=== PATIENT | female | born 1960 | race Caucasian/White ===

== ENCOUNTER → 2019-12-18 | Outpatient (CLI) | payer OTHER ==
[~2019-12-18] MED LIST: ATEN50TA41 PO; DIPH25CA61 PO; FEXO60TA24 PO; HYDR-3240 PO; HYDR25TA6 PO; HYDR50TA3 PO; LEVO112T41 PO; LEVO75TA59 PO; MELA3TAB56 PO; MULT-672 PO; OMEG-14 PO; POTA10CA PO; POTA10TA6 PO; PSYL0.5215 PO; VANC125C3 PO; hycosamine PO; marijuana
== END | disposition home or self-care (01) ==
LOC: RAD 09:11
PROVIDERS: ATTEND Family Medicine
DX: R10.9 Unspecified abdominal pain (principal)
CPT/HCPCS: 76700